=== PATIENT | female | born 2000 | race Two or more races ===

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

== ENCOUNTER 2018-10-31 06:59 | Emergency (ER) | payer MEDICAID ==
[~2018-10-31] VITALS: Ht 162.6 cm; Wt 92.1 kg
[2018-10-31 07:11] VITALS: BP 144/98
[2018-10-31 08:10] LABS: Basophils # (auto) 0 uL; Basophils % (auto) 0.7 % (0.0-2.0); Eosinophils # (auto) 0.1 uL; Eosinophils % (auto) 3.9 % (0.0-7.0); Hematocrit 44.8 % (36.0-46.0); Hemoglobin 15.2 g/dL (12.2-16.2); Lymphocytes % (auto) 27.7 % (10.0-50.0); Mean Corpuscular Hemoglobin 28.9 pg (28.0-32.0); Mean Corpuscular Volume 85.2 fL (80.0-100.0); Monocytes # (auto) 0.3 uL; Monocytes % (auto) 8.7 % (0.0-12.0); Neutrophils # (auto) 2.1 uL; Nucleated Red Blood Cells % 0.1 %; Platelet Count (auto) 220 10^3/uL (140-450); Red Blood Cells 5.26 10^6/uL (4.0-5.20); Red Cell Distribution Width 12.7 % (11.8-14.3); White Blood Cell 3.5 10^3/uL (4.4-10.8)
[2018-10-31 08:20] LABS: Potassium 4.2 mmol/L (3.5-5.1)
[2018-10-31 08:24] LABS: Albumin 4.2 g/dL (3.4-5.0); Calcium 9.6 mg/dL (8.5-10.1)
[2018-10-31 08:27] LABS: BUN/Creatinine Ratio 9.8
[2018-10-31 08:30] LABS: Bilirubin, Total 0.5 mg/dL (0.2-1.0); Total Protein 8.5 g/dL (6.4-8.2)
== END 2018-10-31 09:05 | disposition home or self-care (01) ==
LOC: ER 07:04
DX: F41.1 Generalized anxiety disorder (principal); F32.9 Major depressive disorder, single episode, unspecified
CPT/HCPCS: 36415; 71046; 80053; 84443; 84484; 85025; 93005

== ENCOUNTER 2022-02-18 20:19 | Emergency (ER) | payer MEDICAID ==
[~2022-02-18] VITALS: Ht 162.6 cm; Wt 99.0 kg
[2022-02-18 20:58] VITALS: BP 147/98
== END 2022-02-19 00:27 | disposition home or self-care (01) ==
LOC: EDBD 20:19 → EDSEX 20:19 → EDUNIT# 20:19 → ER 20:19
DX: S93.401A Sprain of unspecified ligament of right ankle, initial encounter (principal); M79.10 Myalgia, unspecified site; M79.641 Pain in right hand; V43.52XA Car driver injured in collision with other type car in traffic accident, initial encounter; Y93.89 Activity, other specified; Y92.410 Unspecified street and highway as the place of occurrence of the external cause; Y99.8 Other external cause status
CPT/HCPCS: 73120; 73600; 73620